=== PATIENT | male | born 1975 | race Two or more races ===

== ENCOUNTER 2018-11-01 20:32 | Emergency (ER) | payer OTHER ==
[2018-11-01] MEDS ORDERED: IBUPROFEN 600 MG TAB PO ONE (21:08)
== END 2018-11-01 21:11 | disposition home or self-care (01) ==
DX: S16.1XXA Strain of muscle, fascia and tendon at neck level, initial encounter (principal); V49.49XA Driver injured in collision with other motor vehicles in traffic accident, initial encounter; Y92.410 Unspecified street and highway as the place of occurrence of the external cause